=== PATIENT | male | born 1995 | race African-American/Black ===

== ENCOUNTER 2021-03-04 09:54 | Emergency (ER) | payer OTHER ==
[~2021-03-04] VITALS: Ht 180.3 cm; Wt 71.0 kg
--- NOTE | 2021-03-04 12:57 | REP ---
INDICATION: trauma, left eye swelling, pain with EOM COMPARISON: None. TECHNIQUE: Axial noncontrast images from the skull base to the vertex with coronal reformations. This CT examination was performed using the following dose reduction techniques: Automated exposure control, adjustment of mA and/or kv according to the patient's size, and use of iterative reconstruction technique. FINDINGS: The ventricles, sulci, and cisterns are normal in position and appearance. Willis-white differentiation is maintained. No acute intracranial hemorrhage, mass/mass effect, pathology or trauma/injury. No evidence for acute infarction. No extra-axial fluid collection. Calvarium is intact. Paranasal sinuses and mastoid air cells are clear. There is left periorbital/infraorbital soft tissue swelling and subcutaneous emphysema consistent with history of trauma. Visualized portions of the globe as well as ocular musculature and intraconal structures appear symmetric, intact and without associated obvious injury. IMPRESSION: Left periorbital/infraorbital injury. No evidence for acute intracranial pathology or trauma/injury. <Electronically signed by Zeeshan Burgos > 03/04/21 [id number]
--- NOTE | 2021-03-04 12:58 | REP ---
INDICATION: trauma, left eye swelling, pain with EOM COMPARISON: None. TECHNIQUE: Axial noncontrast images from the skull base to the thoracic inlet with coronal and sagittal re-formations This CT examination was performed using the following dose reduction techniques: Automated exposure control, adjustment of mA and/or kv according to the patient's size, and use of iterative reconstruction technique. FINDINGS: Normal alignment and lordosis is maintained. Cervical vertebral bodies including transverse processes and spinous processes are intact and there is no evidence for acute fracture / compression injury or subluxation. Spinal canal is patent. Posterior elements are intact. Paravertebral soft tissues are normal. IMPRESSION: Normal noncontrast cervical spine CT. No evidence for acute pathology or trauma/injury. <Electronically signed by Zeeshan Burgos > 03/04/21 [id number]
--- NOTE | 2021-03-04 13:03 | REP ---
INDICATION: trauma, left eye swelling, pain with EOM COMPARISON: None. TECHNIQUE: Axial noncontrast images through the facial bones to include the mandible with coronal and sagittal re-formations. FINDINGS: Left periorbital soft tissue swelling with predominantly infraorbital subcutaneous emphysema and mild proptosis. A small amount of extraconal gas is identified along the medial wall of the left orbit. The globe as well as the ocular musculature, orbital and intraconal fat as well as the central optic nerve and neurovascular bundle all appear intact, symmetric and essentially normal. The surrounding osseous orbital torres and osseous structures appear intact and without obvious acute fracture. The sinuses are relatively well aerated and there is no fluid level to suggest associated injury. IMPRESSION: Left sided periorbital/infraorbital soft tissue injuries as described above. The left eye including ocular musculature, intraorbital fat and neurovascular bundle appear normal. <Electronically signed by Zeeshan Burgos > 03/04/21 [id number]
--- NOTE | 2021-03-04 13:04 | REP ---
INDICATION: trauma COMPARISON: None. TECHNIQUE: AP, lateral, and swimmers views. FINDINGS: Alignment and kyphosis is maintained. Vertebral bodies intact. No acute fracture / compression injury or subluxation. No degenerative changes. Paravertebral soft tissues are normal. IMPRESSION: Normal thoracic spine series. No evidence for acute injury. <Electronically signed by Zeeshan Burgos > 03/04/21 [id number]
[2021-03-04] MEDS ORDERED: FLUORESCEIN OPHTH 1 MG STRIP OS ONE (14:00)
[2021-03-04] MEDS ORDERED: TETRACAINE 0.5% OPHTH SOLN 4ML OS ONE (14:00)
[2021-03-04 15:20] VITALS: BP 157/81
== END 2021-03-04 15:41 | disposition home or self-care (01) ==
LOC: M ED 09:54
DX: S05.12XA Contusion of eyeball and orbital tissues, left eye, initial encounter (principal); S09.90XA Unspecified injury of head, initial encounter; S01.80XA Unspecified open wound of other part of head, initial encounter; S29.012A Strain of muscle and tendon of back wall of thorax, initial encounter; X58.XXXA Exposure to other specified factors, initial encounter; Y92.9 Unspecified place or not applicable; Y93.9 Activity, unspecified; Y99.9 Unspecified external cause status